=== PATIENT | female | born 1995 | race African-American/Black ===

== ENCOUNTER 2018-11-10 17:47 | Emergency (ER) | payer OTHER ==
--- NOTE | 2018-11-10 17:56 | PDOC ---
Rapid Medical Evaluation Time Seen by Provider: 11/10/18 17:52 Medical Evaluation: Allergies Allergy/AdvReac Type Severity Reaction Status Date / Time ibuprofen [From Motrin] Allergy Rash Verified 04/05/16 08:49 11/10/18 17:54 I have performed a brief in-person evaluation of this patient The patient present with a chief complaint of: lower abdominal pain x 4 days. Patient reports + test with no vaginal discharge or dysuria. LMP 10/13/18, Pertinent physical exam findings: NAD even and unlabored breathing I have ordered the following: urine and u/a The patient will proceed to the ED for further evaluation. Discharge Disposition - Diagnosis Abdominal pain - Referrals - Patient Instructions - Post Discharge Activity
[2018-11-10 18:07] VITALS: BP 114/67; PULSE 83; TEMP 98.3; BMI 21.9
[2018-11-10 21:27] LABS: PH,URINE 8.5 (5.0-8.0); URINE APPEARANCE Clear; URINE BILIRUBIN Negative (NEGATIVE); URINE COLOR Yellow; URINE GLUCOSE (UA) Negative (NEGATIVE); URINE KETONE Trace (NEGATIVE); URINE LEUK ESTERASE Negative (NEGATIVE); URINE NITRITE Negative (NEGATIVE); URINE PROTEIN Negative (NEGATIVE)
[2018-11-10 21:30] LABS: HCG,QUALITATIVE URINE Positive
--- NOTE | 2018-11-10 22:43 | PDOC ---
History of Present Illness - General History Source: Patient Exam Limitations: No Limitations - History of Present Illness Initial Comments: 11/10/18 22:48 The patient is a 23 YOF with no PMH, , who presents to the ER with left pelvic discomfort and lower abdominal discomfort today. Patient did a home test, which was positive. Denies vaginal bleeding or discharge. LMP was from October 13-. The patient denies chest pain, shortness of breath, headache and dizziness. Denies fever, chills, nausea, vomit, diarrhea and constipation. Denies dysuria, frequency, urgency and hematuria. Allergies: NKA Past surgical history: None reported. Social history: No reported alcohol, drug or cigarette use. PCP: Dr. Rowland <Marian Kellogg - Last Filed: 11/10/18 22:46> <Mandy Person - Last Filed: 11/10/18 23:33> - General Chief Complaint: Pain Stated Complaint: SHORP PAIN IN STOMACH Time Seen by Provider: 11/10/18 17:52 Past History <Marian Kellogg - Last Filed: 11/10/18 22:46> - Past Medical History Asthma: Yes (LAST ATTACK YEARS AGO) Cancer: No Cardiac Disorders: No Diabetes: No HTN: No Seizures: No Thyroid Disease: No - Reproductive History (#): 1 Para: 0 Cervical CA: No Dysfunctional Uterine Bleeding: No Ectopic : No Endometrial CA: No Polycystic Ovaries: No Therapeutic (s) & number: No Tubal Ligation: No Spontaneous : 0 - Immunization History Immunization Up to Date: Yes - Suicide/Smoking/Psychosocial Hx Smoking Status: No Smoking History: Never smoked Have you smoked in the past 12 months: No Number of Cigarettes Smoked Daily: 1 Information on smoking cessation initiated: No Hx Alcohol Use: No Drug/Substance Use Hx: No Substance Use Type: None Hx Substance Use Treatment: No <Mandy Person - Last Filed: 11/10/18 23:33> - Past Medical History Allergies/Adverse Reactions: Allergies Allergy/AdvReac Type Severity Reaction Status Date / Time ibuprofen [From Motrin] Allergy Rash Verified 11/10/18 17:55 Home Medications: Ambulatory Orders Vit No.130/Iron/Folic [ Vitamins] 1 each PO DAILY #30 tablet Ferrous Sulfate [Feosol] 325 mg PO BID 03/20/16 Review of Systems - Review of Systems Able to Perform ROS?: Yes Comments:: 11/10/18 22:47 ADULT ROS GENERAL/CONSTITUTIONAL: No fever or chills. No weakness. HEAD, EYES, EARS, NOSE AND THROAT: No change in vision. No ear pain or discharge. No sore throat. CARDIOVASCULAR: No chest pain or shortness of breath. RESPIRATORY: No cough, wheezing, or hemoptysis. GASTROINTESTINAL: No nausea, vomiting, diarrhea or constipation. (+) lower abdominal tenderness. GENITOURINARY: No dysuria, frequency, or change in urination. MUSCULOSKELETAL: No joint or muscle swelling or pain. No neck or back pain. SKIN: No rash NEUROLOGIC: No headache, vertigo, loss of consciousness, or change in strength/ sensation. ENDOCRINE: No increased thirst. No abnormal weight change. HEMATOLOGIC/LYMPHATIC: No anemia, easy bleeding, or history of blood clots. ALLERGIC/IMMUNOLOGIC: No hives or skin allergy. <Marian Kellogg - Last Filed: 11/10/18 22:46> *Physical Exam - Vital Signs Last Vital Signs Temp Pulse Resp BP Pulse Ox 98.3 F 83 18 114/67 98 11/10/18 17:56 11/10/18 17:56 11/10/18 17:56 11/10/18 17:56 11/10/18 17:56 - Physical Exam Comments: 11/10/18 22:46 ADULT EXAM GENERAL: Awake, alert, and fully oriented, in no acute distress HEAD: No signs of trauma EYES: PERRLA, EOMI, sclera anicteric, conjunctiva clear ENT: Auricles normal inspection, hearing grossly normal, nares patent, oropharynx clear without exudates. Moist mucosa NECK: Normal ROM, supple, no lymphadenopathy, JVD, or masses LUNGS: Breath sounds equal, clear to auscultation bilaterally. No wheezes, and no crackles HEART: Regular rate and rhythm, normal S1 and S2, no murmurs, rubs or gallops ABDOMEN: Soft, flat abdomen, nontender, normoactive bowel sounds. No guarding, no rebound. No masses : (+) Left adnexal tenderness. No CMT. EXTREMITIES: Normal range of motion, no edema. No clubbing or cyanosis. No cords, erythema, or tenderness NEUROLOGICAL: Cranial nerves II through XII grossly intact. Normal speech, normal gait SKIN: Warm, Dry, normal turgor, no rashes or lesions noted. ] <Marian Kellogg - Last Filed: 11/10/18 22:46> - Vital Signs Last Vital Signs Temp Pulse Resp BP Pulse Ox 98.3 F 83 18 114/67 98 11/10/18 17:56 11/10/18 17:56 11/10/18 17:56 11/10/18 17:56 11/10/18 17:56 - Physical Exam General Appearance: Yes: Thin HEENT: positive: Normal ENT Inspection, Normal Voice Neck: positive: Supple Respiratory/Chest: positive: Lungs Clear Cardiovascular: positive: Regular Rhythm, Regular Rate Female Pelvic Exam: positive: normal external exam, cervical os closed Gastrointestinal/Abdominal: positive: Soft Musculoskeletal: positive: Normal Inspection Extremity: positive: Normal Inspection, Normal Range of Motion Integumentary: positive: Normal Color, Warm Neurologic: positive: Fully Oriented, Alert, Motor Strength 5/5 <Mandy Person - Last Filed: 11/10/18 23:33> ED Treatment Course - ADDITIONAL ORDERS Additional order review: Laboratory Results 11/10/18 21:11 Urine Color Yellow Urine Appearance Clear Urine pH 8.5 H D Ur Specific [place] 1.015 Urine Protein Negative Urine Glucose (UA) Negative Urine Ketones Trace Urine Blood Negative Urine Nitrite Negative Urine Bilirubin Negative Urine Urobilinogen 1.0 Ur Leukocyte Esterase Negative Urine HCG, Qual Positive <Marian Kellogg - Last Filed: 11/10/18 22:46> - ADDITIONAL ORDERS Additional order review: Laboratory Results 11/10/18 21:11 Urine Color Yellow Urine Appearance Clear Urine pH 8.5 H D Ur Specific [place] 1.015 Urine Protein Negative Urine Glucose (UA) Negative Urine Ketones Trace Urine Blood Negative Urine Nitrite Negative Urine Bilirubin Negative Urine Urobilinogen 1.0 Ur Leukocyte Esterase Negative Urine HCG, Qual Positive <Mandy Person - Last Filed: 11/10/18 23:33> Medical Decision Making - Medical Decision Making 11/10/18 22:40 23-year-old female who is restless. Was October 13 the ninth had some pelvic discomfort and took a home test that was positive Past medical history 2, para 1, miscarriage 1. Patient states that she is going to see care appointment [facility] Patient denies any past surgical history Patient denies any vaginal bleeding Transvaginal ultrasound shows an ill-defined fluid collection within the uterus that may be early gestational sac. No yolk sac or pole identified. Correlate with serial beta hCGs and follow-up ultrasound. Ovaries are normal size and texture with no evidence of torsion There is a corpus luteum cyst on right ovary findings no evidence of adrenal masses and no free pelvic fluid. [facility] early IUP. Plan patient is to have repeat beta hCG and ultrasound in 48 hours <Mandy Person - Last Filed: 11/10/18 23:33> *DC/Admit/Observation/Transfer - Attestations Scribe Attestion: 11/10/18 22:51 Documentation prepared by Marian Kellogg, acting as clinical medical assistant for Mandy Person MD. <Marian Kellogg - Last Filed: 11/10/18 22:46> <Mandy Person - Last Filed: 11/10/18 23:33> Diagnosis at time of Disposition: Early stage of - Discharge Dispostion Disposition: HOME Condition at time of disposition: Stable - Referrals Referrals: Veda Rowland [Primary Care Provider] - - Patient Instructions Printed Discharge Instructions: DI for -- Discomforts and Remedies Additional Instructions: You must have a repeat BHCG and pelvic ultrasound in 48 hours You may return to the emergency department OR follow up with [facility] practice nurse this week - Post Discharge Activity
== END 2018-11-10 23:45 | disposition home or self-care (01) ==
LOC: JER 17:47
DX: O26.891 Other specified pregnancy related conditions, first trimester (principal); R10.2 Pelvic and perineal pain; O34.81 Maternal care for other abnormalities of pelvic organs, first trimester; N83.11 Corpus luteum cyst of right ovary; Z3A.01 Less than 8 weeks gestation of pregnancy
CPT/HCPCS: 36415; 76801-TC; 81003; 84702; 84703; 87086; 99281-25

== ENCOUNTER 2019-10-20 18:33 | Emergency (ER) | payer OTHER ==
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
[2019-10-20 18:43] VITALS: BP 118/79; PULSE 91; TEMP 98.2; BMI 19.3
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
== END 2019-10-20 20:10 | disposition home or self-care (01) ==
LOC: JERFT 18:33
DX: G44.309 Post-traumatic headache, unspecified, not intractable (principal); F07.81 Postconcussional syndrome; S00.83XA Contusion of other part of head, initial encounter; Y04.2XXA Assault by strike against or bumped into by another person, initial encounter; Y93.89 Activity, other specified; Y92.89 Other specified places as the place of occurrence of the external cause; Y99.8 Other external cause status; Y07.03 Male partner, perpetrator of maltreatment and neglect
CPT/HCPCS: 70450-TC; 70486-TC; 99284-25

== ENCOUNTER 2021-11-28 10:08 | Emergency (ER) | payer OTHER ==
[2021-11-28 10:25] VITALS: BP 134/71; PULSE 96; TEMP 97.9; BMI 21.9
[2021-11-28] MEDS ORDERED: KETOROLAC TROMETHAMINE 30 MG/1 ML VIAL IM ONE (11:58)
[2021-11-28] MEDS ORDERED: PENICILLIN V POTASSIUM 500 MG TABLET PO ONE (11:58)
[2021-11-28] MEDS ORDERED: KETOROLAC TROMETHAMINE 30 MG/1 ML VIAL ONE (12:04)
== END 2021-11-28 12:57 | disposition home or self-care (01) ==
LOC: JERFT 10:08
PROC: 3E0233Z Introduction of Anti-inflammatory into Muscle, Percutaneous Approach (ICD-10-PCS; principal; 2021-11-28)
DX: K04.7 Periapical abscess without sinus (principal); K02.9 Dental caries, unspecified
CPT/HCPCS: 99284-25

== ENCOUNTER 2022-09-09 09:19 | Emergency (ER) | payer OTHER ==
[2022-09-09 09:25] VITALS: BP 107/63; PULSE 80; RESP 18; TEMP 98.2; BMI 27.4
== END 2022-09-09 10:55 | disposition home or self-care (01) ==
LOC: JERFT 09:19
DX: K02.9 Dental caries, unspecified (principal)
CPT/HCPCS: 99283-25

== ENCOUNTER 2023-08-12 16:15 | Emergency (ER) | payer SELFPAY ==
[2023-08-12 16:29] VITALS: BP 125/83; PULSE 102; RESP 18; TEMP 98.4; BMI 23.1
[2023-08-12] MEDS ORDERED: ACETAMINOPHEN 325 MG TABLET (FP) PO ONE (18:17)
[2023-08-12] MEDS ORDERED: ACETAMINOPHEN 325 MG TABLET (FP) ONE (18:45)
[2023-08-12] MEDS ORDERED: DIPHTH,PERTUSS(ACELL),TET 0.5 ML DISP.SYRIN IM ONE ×2 (20:15→22:56)
[2023-08-12 20:29] LABS: PH,URINE 5.5 (5.0-8.0); URINE APPEARANCE CLOUDY; URINE BILIRUBIN NEGATIVE (NEGATIVE); URINE COLOR YELLOW; URINE GLUCOSE (UA) NEGATIVE (NEGATIVE); URINE KETONE 2+ (NEGATIVE); URINE LEUK ESTERASE NEGATIVE (NEGATIVE); URINE NITRITE NEGATIVE (NEGATIVE); URINE PROTEIN TRACE (NEGATIVE)
[2023-08-12 20:48] LABS: HCG,QUALITATIVE URINE Negative
[2023-08-12 21:23] LABS: OPIATES, URI NEGATIVE (NEGATIVE); PHENCYCLIDINE,URINE NEGATIVE (NEGATIVE); URINE BARBITURATES NEGATIVE (NEGATIVE); URINE BENZODIAZEPINES NEGATIVE (NEGATIVE)
[2023-08-12 21:24] LABS: COCAINE, UR NEGATIVE (NEGATIVE); METHADONE, UR NEGATIVE (NEGATIVE); URINE AMPHETAMINES NEGATIVE (NEGATIVE)
[2023-08-12] MEDS ORDERED: AMOX TR/POT CLAV 875MG/125MG TABLETS (FP) PO ONE (22:49)
[2023-08-12] MEDS ORDERED: AMOX TR/POT CLAV 875MG/125MG TABLETS (FP) ONE (22:51)
== END 2023-08-12 23:05 | disposition home or self-care (01) ==
LOC: JER 16:15
PROC: 3E0234Z Introduction of Serum, Toxoid and Vaccine into Muscle, Percutaneous Approach (ICD-10-PCS; principal; 2023-08-12)
DX: S02.5XXA Fracture of tooth (traumatic), initial encounter for closed fracture (principal); S00.532A Contusion of oral cavity, initial encounter; R51.9 Headache, unspecified; M25.561 Pain in right knee; K13.0 Diseases of lips; W10.1XXA Fall (on)(from) sidewalk curb, initial encounter
CPT/HCPCS: 70450-TC; 70486-TC; 72125-TC; 73562-TC-RT-FY; 80307; 81003; 84703; 90715; 93005; 93010; 99285-25

== ENCOUNTER 2025-01-12 19:15 | Inpatient (IN) | payer OTHER ==
[2025-01-12] MEDS: ELECTROLYTE-148 SOLN 1,000 ML IV SCH (20:10)
[2025-01-12] MEDS ORDERED: MAG HYDROX/AL HYDROX/SIMETH 30 ML UNIT-DOSE CUP PO PRN (20:56)
[2025-01-12] MEDS ORDERED: OXYTOCIN 30 UNITS in 0.9% NS 30 UNIT/500 ML INFUS.BAG IVPB ONE (21:03)
[2025-01-12] MEDS: OXYTOCIN 30 UNITS in 0.9% NS 30 UNIT/500 ML INFUS.BAG IVPB SCH (21:15)
[2025-01-12 22:32] LABS: HIV INTERPRETATION NEGATIVE (NEGATIVE)
[2025-01-12 23:10] VITALS: BMI 32.2
[2025-01-13] MEDS ORDERED: FENTANYL/BUPIVACAINE/NS/PF - PCEA - 50 ML DISP.SYRIN EP ONE ×3 (07:49→14:43)
[2025-01-13] MEDS ORDERED: FENTANYL CITRATE/PF 50 MCG/ML VIAL ONE (08:01)
[2025-01-13] MEDS: FENTANYL/BUPIVACAINE/NS/PF - PCEA - 50 ML DISP.SYRIN EP SCH ×3 (08:30→12:12)
[2025-01-13] MEDS ORDERED: BUPIVACAINE HCL/PF 0.25% (2.5MG/ML) 10 ML VIAL ONE ×3 (09:22→09:54)
[2025-01-13] MEDS ORDERED: NALOXONE HCL 0.4 MG/ML VIAL IVPUSH PRN ×2 (09:28→10:05)
[2025-01-13] MEDS: PROMETHAZINE HCL 25 MG/1 ML VIAL IVPB ONE (12:22)
[2025-01-13] MEDS: BUTORPHANOL TARTRATE 2 MG/ML VIAL IVPB ONE (12:22)
[2025-01-13] MEDS ORDERED: OXYTOCIN 20 UNITS in 0.9% NS 20 UNIT/1,000 ML INFUS.BAG IV ONE (14:43)
[2025-01-13] MEDS ORDERED: BENZOCAINE 20% 57 GM BOTTLE TP PRN (18:09)
[2025-01-13] MEDS ORDERED: METHYLERGONOVINE MALEATE 0.2 MG/1 ML AMP IM PRN (18:09)
[2025-01-13] MEDS ORDERED: oxyCODONE HCL 5 MG TABLET PO PRN (18:09)
[2025-01-13] MEDS ORDERED: BENZOCAINE 28 GM HEMORRHOIDAL OINTMENT TP PRN (18:09)
[2025-01-13] MEDS ORDERED: ACETAMINOPHEN 325 MG TABLET (FP) PO PRN (18:09)
[2025-01-13] MEDS ORDERED: WITCH HAZEL 50% (TUCKS) 40 PAD/JAR PAD TP PRN (18:09)
[2025-01-13] MEDS ORDERED: BISACODYL 10 MG SUPP.RECT RC PRN (18:09)
[2025-01-13] MEDS: OXYTOCIN 20 UNITS in 0.9% NS 20 UNIT/1,000 ML INFUS.BAG IV SCH (19:00)
[2025-01-13 19:04] LABS: CORD HCO3 19.8 mmHg (20-29); CORD PCO2 40.3 mmHg (30-78); CORD pH 7.31 (7.14-7.44)
[2025-01-13 19:04] LABS: CORD BASE EXCESS -7.9 mmol/L (0-2); CORD HCO3 21.2 mmHg (20-29); CORD pH 7.18 (7.14-7.44)
[2025-01-13] MEDS: LABETALOL HCL 200 MG TABLET (FP) PO ONE (20:19)
[2025-01-13] MEDS: IBUPROFEN 600 MG TABLET (FP) PO PRN (20:57)
[2025-01-13] MEDS ORDERED: LABETALOL HCL 200 MG TABLET (FP) PO SCH ×3 (22:00)
[2025-01-14 07:20] LABS: ABSOLUTE IMMATURE GRANULOCYTES 0.07 x10^3/uL (0.0-0.031); BASOPHILS # 0.02 x10^3/uL (0.01-0.08); EOSINOPHIL % 0.3 % (0.7-5.8); EOSINOPHILS # 0.05 x10^3/uL (0.04-0.36); HEMATOCRIT 34.3 % (34.1-44.9); HEMOGLOBIN 10.6 g/dL (11.2-15.7); MCHC 30.9 g/dl (32.2-35.5); MEAN CELL VOLUME 80.5 fl (79.4-94.8); MEAN PLT VOLUME 9.7 fl (9.4-12.3); MONOCYTE # 0.78 x10^3/uL (0.24-0.86); MONOCYTE % 5.1 % (4.7-12.5); PLATELET COUNT 234 x10^3/uL (182-369); RDW 15.8 % (12.1-16.5)
[2025-01-14] MEDS: FERROUS SO4 325 MG TABLET (FP) PO SCH (08:36)
[2025-01-14] MEDS: PRENATAL VITAMINS W/ FOLIC ACID TABLET (FP) PO SCH (09:39)
[2025-01-14] MEDS ORDERED: SENNOSIDES/DOCUSATE COMBO (SENNA PLUS) TABLET (UD) PO PRN (22:00)
[2025-01-15 08:20] VITALS: BP 131/64; PULSE 78; RESP 17; TEMP 98.1
== END 2025-01-15 11:55 | disposition home or self-care (01) | DRG 560 ==
LOC: JLDR 19:15 → J3W 01-13 20:34
PROVIDERS: ADMIT Obstetrics & Gynecology; ATTEND Obstetrics & Gynecology
PROC: 10E0XZZ Delivery of Products of Conception, External Approach (ICD-10-PCS; principal; 2025-01-13)
DX: O48.0 Post-term pregnancy (principal); Z3A.40 40 weeks gestation of pregnancy; Z37.0 Single live birth
CPT/HCPCS: 36415; 36600; 59025; 59409; 80053; 81003; 82570; 82803; 82977; 83010; 84156; 84550; 85025; 85610; 85730; 86780; 86850; 86900; 86901; 87389